=== PATIENT | male | born 1985 | race Caucasian/White ===

== ENCOUNTER 2016-10-28 22:05 | Emergency (ER) | payer SELFPAY ==
[~2016-10-28 22:05] MED LIST: ABILIFY; TRAZ-147 PO
--- NOTE | 2016-10-28 22:29 | NUR ---
called to triage, no answer.
--- NOTE | 2016-10-28 22:52 | NUR ---
CALLED AGAIN X3; NO ANSWER
== END 2016-10-28 22:53 | disposition left against medical advice (07) ==
LOC: ER 22:20
DX: Z53.21 Procedure and treatment not carried out due to patient leaving prior to being seen by health care provider (principal)

== ENCOUNTER 2017-03-29 15:11 | Emergency (ER) | payer SELFPAY ==
[~2017-03-29] VITALS: Ht 188 cm; Wt 129.3 kg
[2017-03-29] MEDS ORDERED: KETOROLAC TROMETHAMINE INJ 60 MG/2 ML VIAL IM ONE ×2 (16:20→16:30)
[2017-03-29 16:33] LABS: BASOPHILS # (AUTO) 0.1 /CMM (0.0-0.2); BASOPHILS % (AUTO) 0.8 % (0.0-2.0); EOSINOPHILS # (AUTO) 0.2 /CMM (0.0-0.7); EOSINOPHILS % (AUTO) 2.4 % (0.0-6.0); HEMATOCRIT 47 % (39-51); HEMOGLOBIN 15.5 g/dL (13.5-17.5); LYMPHOCYTES # (AUTO) 2.5 /CMM (0.8-4.8); LYMPHOCYTES % (AUTO) 31.1 % (20.0-44.0); MEAN CORPUSCULAR HEMOGLOBIN 30 PG (26.0-33.0); MEAN CORPUSCULAR HGB CONC 33 g/dl (31.0-36.0); MEAN CORPUSCULAR VOLUME 91 fL (80-96); MONOCYTES # (AUTO) 0.7 /CMM (0.1-1.30); MONOCYTES % (AUTO) 8.9 % (2.0-12.0); NEUTROPHILS # (AUTO) 4.6 /CMM (1.8-8.9); NEUTROPHILS % (AUTO) 56.8 % (43.0-81.0); PLATELET COUNT (AUTO) 293 /CMM (150-450); RED BLOOD CELL COUNT(AUTO) 5.15 MIL/uL (4.5-6.0); WHITE BLOOD COUNT (AUTO) 8.1 K/uL (4.3-11.0)
--- NOTE | 2017-03-29 16:33 | NUR ---
CHEST PAIN X TODAY TOOTHACHE AND HEADACHE X 3 DAYS. PLACED ON MONITOR. AWAITING MD ORDER
--- NOTE | 2017-03-29 16:50 | NUR ---
UNABLE TO PROVIDE URINE DR LU MADE AWARE
[2017-03-29 17:08] LABS: ALANINE AMINOTRANSFERASE 36 U/L (12-78); ALBUMIN 4.1 g/dL (3.4-5.0); ALCOHOL, BLOOD 4 mg/dL (0-0); ALKALINE PHOSPHATASE 58 U/L (46-116); ASPARTATE AMINOTRANSFERASE 28 U/L (15-37); BILIRUBIN,DIRECT 0.1 mg/dL (0.0-0.2); BILIRUBIN,TOTAL 0.6 mg/dL (0.2-1.0); CALCIUM, SERUM 8.9 mg/dL (8.5-10.1); CARBON DIOXIDE 27 mmol/L (21-32); CHLORIDE 106 mmol/L (98-107); CREATININE 0.9 mg/dL (0.6-1.3); GLUCOSE 91 mg/dL (74-106); POTASSIUM 4.4 mmol/L (3.5-5.1); SODIUM SERUM 140 mmol/L (136-145); TOTAL PROTEIN, SERUM 7.2 g/dL (6.4-8.2); UREA NITROGEN, BLOOD 16 mg/dL (7-18)
[2017-03-29 17:09] LABS: ACETAMINOPHEN < 2 ug/ml (10-30)
--- NOTE | 2017-03-29 17:22 | NUR ---
CALLED [facility] FOR PSYCH EVAL ETA 1 HOUR
--- NOTE | 2017-03-29 17:28 | NUR ---
CALLED PHARMACY FOR MIROSLAVA
[2017-03-29] MEDS ORDERED: ARIPIPRAZOLE 5 MG TABLET PO ONE (17:30)
[2017-03-29] MEDS ORDERED: diphenhydrAMINE HCL 50 MG/ML VIAL ONE (17:44)
[2017-03-29] MEDS ORDERED: LORAZEPAM INJ 2 MG/ML VIAL ONE (17:47)
[2017-03-29] MEDS ORDERED: HALOPERIDOL LACTATE INJ 5 MG/ML VIAL ONE (17:48)
--- NOTE | 2017-03-29 17:58 | NUR ---
VERBAL ORDER FROM DR LU BENADRYL 50 MG , HALDOL 5MG AND ATIVAN 2MG IM LEFT THIGH FOR AGITATION. PLACED ON MONITOR.
[2017-03-29] MEDS ORDERED: LORAZEPAM INJ 2 MG/ML VIAL IM ONE (18:00)
[2017-03-29] MEDS ORDERED: diphenhydrAMINE HCL 50 MG/ML VIAL IM ONE (18:00)
[2017-03-29] MEDS ORDERED: HALOPERIDOL LACTATE INJ 5 MG/ML VIAL IM ONE (18:00)
--- NOTE | 2017-03-29 19:44 | NUR ---
ASSUMED CARE OF PT.
--- NOTE | 2017-03-29 20:09 | NUR ---
Patient is resting comfortably in bed with eyes closed. Easily aroused. VSS
--- NOTE | 2017-03-29 20:37 | NUR ---
ASSUMED CARE OF PT. PT APPEARS TO BE RESTING COMFORTABLY WITH NO S/S OF PAIN OR DISTRESS. VSS.
--- NOTE | 2017-03-29 21:03 | NUR ---
PT APPEARS TO BE RESTING COMFORTABLY. PT IS ABLE TO MOVE ALL LIMBS. PT IS ON THE MONITOR AND CONTINUOUS PULSE OX.
--- NOTE | 2017-03-29 23:30 | NUR ---
PT APPEARS TO BE SLEEPING COMFORTABLY, BUT IS EASILY AROUSED. PT IS ON THE MONITOR AND CONTINUOUS PULSE OX. WILL CONTINUE TO MONITOR THE PT.
--- NOTE | 2017-03-30 01:30 | NUR ---
PT APPEARS TO BE RESTING/SLEEPING SOUNDLY WITH NO S/S OF PAIN OR DISTRESS. PT IS ON THE MONITOR AND CONTINUOUS PULSE OX.
--- NOTE | 2017-03-30 03:05 | NUR ---
PT IS SLEEPING SOUNDLY WITH NO S/S OF PAIN OR DISTRESS.
--- NOTE | 2017-03-30 05:12 | NUR ---
PT APPEARS TO BE SLEEPING COMFORTABLY WITH NO S/S OF PAIN OR DISTRESS. PT IS ON THE MONITOR AND CONTINOUS PULSE OX. VSS.
--- NOTE | 2017-03-30 05:50 | NUR ---
PT USED THE URINAL AND HAD APPROX 500 ML CONCENTRATED URINE OUTPUT. PT WAS ABLE TO GIVE A URINE SAMPLE.
--- NOTE | 2017-03-30 07:03 | NUR ---
REPORT GIVEN TO CHIARA ZAVALA FOR CY.
[2017-03-30 07:09] LABS: APPEARANCE,URINE CLEAR (CLEAR); BILIRUBIN,URINE NEGATIVE (NEGATIVE); BLOOD, URINE NEGATIVE Ery/uL (NEGATIVE); COLOR,URINE YELLOW (YELLOW); KETONES,URINE 1+ (NEGATIVE); LEUKOCYTE ESTERASE ,URINE NEGATIVE (NEGATIVE); NITRITE, URINE NEGATIVE (NEGATIVE); PROTEIN,URINE TRACE mg/dl (NEGATIVE); UGLUCOSE NEGATIVE (NEGATIVE); UROBILINOGEN,URINE 0.2 EU/dL (0.2)
[2017-03-30 07:50] LABS: BACTERIA,URINE Few /HPF (None Seen); RBC,URINE 0-2 /HPF (0-2); SQUAMOUS EPITHELIAL CELL,UR Few /HPF (None Seen)
[2017-03-30 08:08] VITALS: BP 130/68
--- NOTE | 2017-03-30 08:09 | NUR ---
Patient discharged to home in stable condition. Written and verbal after care instructions given. Patient verbalizes understanding of instruction. ambulatory with steady gait. nad noted. vss. pt denies si/hi. no further complaints.
== END 2017-03-30 08:08 | disposition home or self-care (01) ==
LOC: ER 15:19
DX: F29 Unspecified psychosis not due to a substance or known physiological condition (principal); F20.9 Schizophrenia, unspecified; F31.9 Bipolar disorder, unspecified; F17.200 Nicotine dependence, unspecified, uncomplicated; Z88.8 Allergy status to other drugs, medicaments and biological substances; Z59.0 Homelessness
CPT/HCPCS: 36415 ×2; 71010; 80048; 80076; 80305; 80329; 81001; 84484 ×2; 85025; 93005; 96372 ×2; 99285; A4606; G0480 ×2; J1200; J1630; J1885; J2060; Z7610; 81000-TC

== ENCOUNTER 2017-05-15 01:05 | Emergency (ER) | payer SELFPAY ==
[~2017-05-15] VITALS: Ht 177.8 cm; Wt 81.6 kg
--- NOTE | 2017-05-15 01:09 | NUR ---
PT TO ER BED 13. PT BIB RA C/O ABD PAIN WITH N/V X 4 HOURS. PT PLACED IN GOWN AND ON CREDIT COLLECTION ASSOCIATE. VSS/RESP EVEN UNLABORED/NAD NOTED/SKIN WARM AND DRY/AOX4. AWAITING MD YUNG.
[2017-05-15] MEDS ORDERED: DICYCLOMINE HCL INJ 20 MG/2 ML AMPUL IM ONE (01:32)
[2017-05-15] MEDS ORDERED: ONDANSETRON HCL/PF 4 MG/2 ML VIAL ONE (01:32)
[2017-05-15] MEDS ORDERED: MORPHINE SULFATE INJ 4 MG/ML DISP.SYRIN ONE (01:33)
[2017-05-15] MEDS: ONDANSETRON HCL/PF 4 MG/2 ML VIAL IVP ONE (01:46)
[2017-05-15] MEDS: MORPHINE SULFATE INJ 2 MG/ML DISP.SYRIN IV ONE (01:46)
[2017-05-15] MEDS: DICYCLOMINE HCL INJ 20 MG/2 ML AMPUL IM ONE (01:47)
[2017-05-15] MEDS: IV NS 0.9% 1,000 ML BAG IV ONE (01:47)
--- NOTE | 2017-05-15 01:47 | NUR ---
20G RIGHT AC IV STARTED, BLOOD SAMPLE OBTAINED AND SENT TO LAB. MEDICATED PT ORDERED
[2017-05-15 01:49] LABS: BASOPHILS # (AUTO) 0.1 /CMM (0.0-0.2); BASOPHILS % (AUTO) 0.7 % (0.0-2.0); EOSINOPHILS # (AUTO) 0.2 /CMM (0.0-0.7); EOSINOPHILS % (AUTO) 2.1 % (0.0-6.0); HEMATOCRIT 49 % (39-51); HEMOGLOBIN 16.7 g/dL (13.5-17.5); LYMPHOCYTES # (AUTO) 2.1 /CMM (0.8-4.8); LYMPHOCYTES % (AUTO) 17.7 % (20.0-44.0); MEAN CORPUSCULAR HEMOGLOBIN 31 PG (26.0-33.0); MEAN CORPUSCULAR HGB CONC 34 g/dl (31.0-36.0); MEAN CORPUSCULAR VOLUME 90 fL (80-96); MONOCYTES # (AUTO) 0.7 /CMM (0.1-1.30); NEUTROPHILS # (AUTO) 8.6 /CMM (1.8-8.9); NEUTROPHILS % (AUTO) 73.5 % (43.0-81.0); PLATELET COUNT (AUTO) 293 /CMM (150-450); RDW COEFFICIENT OF VARIATION 13.8 (11.5-15.0); RED BLOOD CELL COUNT(AUTO) 5.39 MIL/uL (4.5-6.0); WHITE BLOOD COUNT (AUTO) 11.7 K/uL (4.3-11.0)
[2017-05-15] MEDS ORDERED: diphenhydrAMINE HCL 50 MG/ML VIAL ONE (01:54)
[2017-05-15] MEDS ORDERED: METOCLOPRAMIDE HCL 10 MG/2 ML VIAL ONE (01:54)
[2017-05-15 02:01] LABS: CALCIUM, SERUM 9.3 mg/dL (8.5-10.1); CREATININE 0.9 mg/dL (0.6-1.3); POTASSIUM 3.7 mmol/L (3.5-5.1)
[2017-05-15 02:02] LABS: INR 0.94 (0.87-1.13)
[2017-05-15] MEDS: diphenhydrAMINE HCL 50 MG/ML VIAL IV ONE (02:02)
[2017-05-15] MEDS: METOCLOPRAMIDE HCL 10 MG/2 ML VIAL IV ONE (02:04)
[2017-05-15 02:08] LABS: ALBUMIN 4.6 g/dL (3.4-5.0); BILIRUBIN,DIRECT 0.2 mg/dL (0.0-0.2); BILIRUBIN,TOTAL 0.7 mg/dL (0.2-1.0); TOTAL PROTEIN, SERUM 8.5 g/dL (6.4-8.2)
[2017-05-15] MEDS ORDERED: IV NS 0.9% 500 ML IV ONE (02:48)
[2017-05-15] MEDS ORDERED: IOHEXOL-300 100 ML VIAL IV ONE (02:48)
[2017-05-15] MEDS ORDERED: CT SWABBABLE VALVE TRANS SET 1 EA INFUS.SET MC ONE (02:48)
--- NOTE | 2017-05-15 02:55 | NUR ---
PT TO CT VIA STRETCHER.
--- NOTE | 2017-05-15 05:23 | NUR ---
IV removed. Catheter intact and site benign. Pressure and 4x4 applied to site. No bleeding noted. Patient discharged to home in stable condition. Written and verbal after care instructions given. Patient verbalizes understanding of instruction. Patient ambulatory with a steady gait.
[2017-05-15 05:25] VITALS: BP 121/63
== END 2017-05-15 05:25 | disposition home or self-care (01) ==
LOC: ER 01:06
DX: R10.84 Generalized abdominal pain (principal); R11.2 Nausea with vomiting, unspecified; R19.7 Diarrhea, unspecified; F20.9 Schizophrenia, unspecified; F17.200 Nicotine dependence, unspecified, uncomplicated; F15.10 Other stimulant abuse, uncomplicated; Z59.0 Homelessness; Z88.8 Allergy status to other drugs, medicaments and biological substances
CPT/HCPCS: 36415; 71045-TC; 80048-TC; 80076-TC; 83690-TC; 85025-TC; 85730-TC; A4606; J0500; J1200; J2270; J2405; J2765; J7030; J7040; Q9967; Z7610

== ENCOUNTER 2017-08-30 21:49 | Emergency (ER) | payer MEDICAID ==
[~2017-08-30] VITALS: Ht 188 cm; Wt 87.1 kg
[~2017-08-30 21:49] MED LIST changes: -TRAZ-147 PO; +TRAZ-214 PO
--- NOTE | 2017-08-30 22:00 | NUR ---
"I FELL A WEEK AGO AND MY LT FA HURTS", NAD NOTED, VSS, RESP EVEN AND UNLABORED, PT WAS PUT ON MONITOR WAITING FOR MD YUNG.
[2017-08-30] MEDS ORDERED: HYDROCODONE/APAP 5/325MG 1 EACH TABLET PO ONE (22:30)
[2017-08-30] MEDS ORDERED: IBUPROFEN 600 MG TABLET PO ONE ×2 (22:30→22:33)
[2017-08-30] MEDS ORDERED: HYDROCODONE/APAP 5/325MG 1 EACH TABLET ONE (22:33)
--- NOTE | 2017-08-30 22:40 | NUR ---
PT UNABLE TO GIVE URINE SAMPLE AT THIS MOMENT.
[2017-08-30 22:49] LABS: BASOPHILS # (AUTO) 0.1 /CMM (0.0-0.2); BASOPHILS % (AUTO) 0.9 % (0.0-2.0); EOSINOPHILS % (AUTO) 1.6 % (0.0-6.0); HEMATOCRIT 39 % (39-51); HEMOGLOBIN 13.3 g/dL (13.5-17.5); LYMPHOCYTES # (AUTO) 2.2 /CMM (0.8-4.8); LYMPHOCYTES % (AUTO) 20.9 % (20.0-44.0); MEAN CORPUSCULAR HGB CONC 34 g/dl (31.0-36.0); MEAN CORPUSCULAR VOLUME 90 fL (80-96); MONOCYTES # (AUTO) 0.9 /CMM (0.1-1.30); MONOCYTES % (AUTO) 8.9 % (2.0-12.0); NEUTROPHILS # (AUTO) 7.1 /CMM (1.8-8.9); NEUTROPHILS % (AUTO) 67.7 % (43.0-81.0); PLATELET COUNT (AUTO) 232 /CMM (150-450); RDW COEFFICIENT OF VARIATION 13.2 (11.5-15.0); RED BLOOD CELL COUNT(AUTO) 4.32 MIL/uL (4.5-6.0); WHITE BLOOD COUNT (AUTO) 10.5 K/uL (4.3-11.0)
[2017-08-30 23:00] LABS: CALCIUM, SERUM 8.2 mg/dL (8.5-10.1); POTASSIUM 3.9 mmol/L (3.5-5.1)
--- NOTE | 2017-08-30 23:25 | NUR ---
RADIOLOGIST SPEAKING TO ANDREA CLEMENT REGARDING RESULTS.
--- NOTE | 2017-08-31 00:11 | NUR ---
PATIENT STARTED TO BECOME AGGRESSIVE TOWARDS STAFF AND WAS CURING STAFF MEMBERS OUT IN [place] AND [place] AND WALKED OUT OF THE ER WITH A STEADY GAIT, PT GIVEN ACI AND PRESCRIPTION.
[2017-08-31 00:13] VITALS: BP 118/76
[2017-09-06] MEDS ORDERED: SULF1TAB48 PO (09:43)
== END 2017-08-31 00:14 | disposition home or self-care (01) ==
LOC: ER 21:49
DX: L03.114 Cellulitis of left upper limb (principal); S40.812A Abrasion of left upper arm, initial encounter; F20.9 Schizophrenia, unspecified; J40 Bronchitis, not specified as acute or chronic; F17.200 Nicotine dependence, unspecified, uncomplicated; F31.9 Bipolar disorder, unspecified; Z59.0 Homelessness; Z88.8 Allergy status to other drugs, medicaments and biological substances; V28.4XXA Motorcycle driver injured in noncollision transport accident in traffic accident, initial encounter; Y93.89 Activity, other specified; Y92.413 State road as the place of occurrence of the external cause; Y99.8 Other external cause status
CPT/HCPCS: 36415; 71045-TC; 73090-TC; 80048-TC; 85025-TC; A4606; Z7610

== ENCOUNTER 2017-09-03 00:47 | Emergency (ER) | payer MEDICAID ==
[~2017-09-03] VITALS: Ht 188 cm; Wt 86.2 kg
--- NOTE | 2017-09-03 00:55 | NUR ---
Called pt in wr, no response
--- NOTE | 2017-09-03 01:18 | NUR ---
Called pt in wr, no response
[2017-09-03 02:09] VITALS: BP 122/82
[2017-09-03] MEDS ORDERED: VANCOMYCIN 1 GM in IV D5W 250 ML IV ONE (02:30)
--- NOTE | 2017-09-03 02:33 | NUR ---
Patient does not wish to proceed with medical care recommended by Dr. KLINE ). Patient given information related to possible complications, up to and including , which could occur as a result of leaving the hospital at this time. Patient verbalizes understanding of risks involved due to leaving against medical advice. Patient has signed AMA form. VSS ypon discharge.
[2017-09-03] MEDS ORDERED: ARIP2TAB3 PO (11:06)
[2017-09-06] MEDS ORDERED: SULF1TAB48 PO (09:43)
== END 2017-09-03 02:40 | disposition left against medical advice (07) ==
LOC: ER 00:56
DX: L03.114 Cellulitis of left upper limb (principal); F20.9 Schizophrenia, unspecified; F17.200 Nicotine dependence, unspecified, uncomplicated; F31.9 Bipolar disorder, unspecified; Z59.0 Homelessness; Z53.20 Procedure and treatment not carried out because of patient's decision for unspecified reasons
CPT/HCPCS: 99281; A4606; Z7610; Z7502

== ENCOUNTER 2017-09-03 09:17 | Inpatient (IN) | payer MEDICAID ==
[~2017-09-03] VITALS: Ht 182.9 cm; Wt 69.4 kg
--- NOTE | 2017-09-03 09:38 | NUR ---
PAIN, SWELLING, AND REDNESS TO L UPPER ARM X 1 WEEK
[2017-09-03 10:54] LABS: BASOPHILS # (AUTO) 0.3 /CMM (0.0-0.2); BASOPHILS % (AUTO) 2.1 % (0.0-2.0); EOSINOPHILS % (AUTO) 0.5 % (0.0-6.0); HEMATOCRIT 41 % (39-51); HEMOGLOBIN 13.8 g/dL (13.5-17.5); LYMPHOCYTES # (AUTO) 2.2 /CMM (0.8-4.8); LYMPHOCYTES % (AUTO) 16.8 % (20.0-44.0); MEAN CORPUSCULAR HGB CONC 34 g/dl (31.0-36.0); MEAN CORPUSCULAR VOLUME 89 fL (80-96); MONOCYTES # (AUTO) 1.1 /CMM (0.1-1.30); MONOCYTES % (AUTO) 8.4 % (2.0-12.0); NEUTROPHILS # (AUTO) 9.3 /CMM (1.8-8.9); NEUTROPHILS % (AUTO) 72.2 % (43.0-81.0); PLATELET COUNT (AUTO) 278 /CMM (150-450); RDW COEFFICIENT OF VARIATION 12.2 (11.5-15.0); RED BLOOD CELL COUNT(AUTO) 4.57 MIL/uL (4.5-6.0)
[2017-09-03] MEDS ORDERED: CEFTRIAXONE 1GM BAG (ER ONLY) 50 ML IV ONE (10:58)
[2017-09-03] MEDS ORDERED: MORPHINE SULFATE INJ 4 MG/ML DISP.SYRIN ONE (10:58)
[2017-09-03] MEDS ORDERED: ONDANSETRON HCL/PF 4 MG/2 ML VIAL ONE (10:58)
[2017-09-03] MEDS ORDERED: ONDANSETRON HCL/PF 4 MG/2 ML VIAL IVP ONE (11:00)
[2017-09-03] MEDS ORDERED: MORPHINE SULFATE INJ 2 MG/ML DISP.SYRIN IV ONE (11:00)
[2017-09-03] MEDS ORDERED: IV NS 0.9% 1,000 ML BAG IV ONE (11:00)
[2017-09-03] MEDS ORDERED: VANCOMYCIN 1 GM in IV D5W 250 ML IV ONE (11:00)
[2017-09-03] MEDS ORDERED: CEFTRIAXONE 1GM BAG (ER ONLY) 1 GM/50 ML PIGGYBACK IV ONE (11:00)
[2017-09-03 11:05] LABS: CALCIUM, SERUM 8.3 mg/dL (8.5-10.1); CREATININE 0.8 mg/dL (0.6-1.3); POTASSIUM 3.8 mmol/L (3.5-5.1)
[2017-09-03] MEDS ORDERED: ARIP2TAB3 PO (11:06)
[2017-09-03] MEDS ORDERED: HALOPERIDOL LACTATE INJ 5 MG/ML VIAL ONE (11:06)
[2017-09-03 11:10] LABS: ALBUMIN 3.4 g/dL (3.4-5.0); BILIRUBIN,TOTAL 0.6 mg/dL (0.2-1.0); INR 0.94 (0.85-1.15); TOTAL PROTEIN, SERUM 6.7 g/dL (6.4-8.2)
--- NOTE | 2017-09-03 11:41 | NUR ---
[facility] PAGED, AUDREY GILBERT CASH MANAGEMENT SPECIALIST
--- NOTE | 2017-09-03 12:05 | NUR ---
GAVE REPORT TO AMEYA BENNETT LEFT ARM CELLULITIS ROOM 200 AUDREY GILBERT ADMITTING
[2017-09-03] MEDS ORDERED: HALOPERIDOL LACTATE INJ 5 MG/ML VIAL IM ONE (12:30)
[2017-09-03] MEDS ORDERED: MAG HYDROX/AL HYDROX/SIMETH 30 ML UDC PO PRN (13:00)
[2017-09-03] MEDS ORDERED: Z GUARD REMEDY 2 OZ OINT TP PRN (13:00)
[2017-09-03] MEDS ORDERED: MORPHINE SULFATE INJ 2 MG/ML DISP.SYRIN IV PRN (13:00)
[2017-09-03] MEDS ORDERED: HYDROCODONE/APAP 5/325MG 1 EACH TABLET PO PRN (13:00)
[2017-09-03] MEDS ORDERED: ACETAMINOPHEN 325 MG TABLET PO PRN (13:00)
[2017-09-03] MEDS ORDERED: MAGNESIUM HYDROXIDE 30 ML UDC PO PRN (13:00)
[2017-09-03] MEDS ORDERED: ONDANSETRON HCL/PF 4 MG/2 ML VIAL IVP PRN (13:00)
[2017-09-03 13:10] VITALS: BP 119/71
[2017-09-03] MEDS ORDERED: FEE PK DOSING 1 MIN EA MC ONE (13:16)
--- NOTE | 2017-09-03 13:46 | NUR ---
MS RN ADMITTING NOTES PATIENT ADMITTED TO UNIT VIA WHEELCHAIR @ 1310 ACCOMPANIED BY E.R. TRANSPORTED. A/O X3. VERBALLY RESPONSIVE WITH NO C/O PAIN OR DISCOMFORTS AT THIS TIME. PT ABLE TO TRANSFERRED SELF FROM WHEELCHAIR TO BED, SOON PT WAS IN BED, HE WENT TO SLEEP AND UN-ABLE TO ASSESS PROPERLY. PT WITH DIAGNOSIS OF CELLULITIS OF LEFT UPPER EXTREMITY. V/S TAKEN : BP 119/71MMHG, P 80, R 20, T 98.3F. ON ROOM AIR AT THIS TIME, BREATHING EVEN AND UNLABORED. HEAD TO TOE ASSESSMENT DONE: PT WITH IV ACCESS ON RIGHT AC G# 20 INTACT AND PATENT. PT NOTED WITH SWOLLEN LEFT UPPER EXTREMITY WITH ERYTHEMA, SCABS AND HEALING ABRASION. SKIN IS WARM TO TOUCH. PHOTOS TAKEN AND FILED ON CHART. UN-ABLE TO COMPLETE SKIN ASSESSMENT BECAUSE PT REFUSED TO REMOVE UNDER GARCIA AND DO ASSESSMENT ON HIS MID-LOWER BACK AND FRONT. SAFETY MEASURES INITIATED. HOB ELEVATED. BED PLACED ON LOW/LOCKED POSITION WI, SIDE-RAILS UP X2 WITH BED ALARM ON. WILL CONTINUE TO ASSESS AND MONITOR PT.
[2017-09-03] MEDS: IV NS 0.9% 1,000 ML IV PRN (13:56)
--- NOTE | 2017-09-03 14:03 | NUR ---
RN NOTES PATIENT VERY SLEEPY/DROWSY, UN-ABLE TO SIGNED CONSENT FOR CTA OF UPPER EXTREMITY AT THIS TIME. ELENO GILBERT MADE AWARE THAT SOON PT IS FULLY AWAKE AND ABLE TO UNDERSTAND THE PROCEDURE, I WILL LET HIM SIGN THE CONSENT IF HE WILL AGREE TO HAVE IT DOWN.
[2017-09-03 16:00] VITALS: BP 101/79
--- NOTE | 2017-09-03 19:01 | NUR ---
RN NOTES PATIENT AWAKE NOW AND EXPLAINED THAT CTA OF LEFT UPPER EXTREMITY WILL BE DONE ON HIM., VERBALIZED UNDERSTANDING AND SIGNED CONSENT. CALLED RADIOLOGY AND SPOKE TO INGRID THAT PT SIGNED THE CONSENT ALREADY, HE SAID THAT THEY'LL DO IT. WILL ENDORSED TO STITCHING MACHINE OPERATOR NURSE.
--- NOTE | 2017-09-03 19:04 | NUR ---
RN NOTES PATIENT IN BED AWAKE AT THIS TIME, EXPLAINED ABOUT CTA OF LEFTB UPPER EXT AND VERBALIZED UNDERSTANDING. CONSENT SIGNED AND FILED ON CHART. WILL CONTINUE TO MONITOR.
--- NOTE | 2017-09-03 19:18 | NUR ---
MS RN NOTES RECEIVED PT IN BED, RESTING COMFORTABLY AT THIS TIME, AROUSES EASILY, A/ O X 4. NO DISTRESS, NO SOB NOTED. RESPIRATION IS EVEN AND UNLABORED. IV SITE ON RAC INTACT AND PATENT, NO S/S OF INFILTRATION NOTED. IVF INFUSING WELL. NO C/O PAIN OR DISCOMFORT AT THIS TIME. SAFETY PRECAUTIONS OBSERVED, CALL LIGHT WITHIN REACH. WILL CONT TO MONITOR.
[2017-09-03] MEDS ORDERED: IOHEXOL-300 100 ML VIAL IV ONE (19:22)
--- NOTE | 2017-09-03 19:24 | NUR ---
MS RN CLOSING NOTES PATIENT PICKED-UP BY 2 RADIOLOGIST FOR CTA OF LEFT UPPER EXTREMITY. ALL NEEDS AND CARE ATTENDED WELL. ON ROOM AIR, TOLERATING WELL WITH NO ACUTE RESPIRATORY DISTRESS NOTED. IV ACCESS ON INTACT AND PATENT. ALL SAFETY MEASURES ENFORCED. ENDORSED TO NIGHT NURSE.
[2017-09-03 20:00] VITALS: BP 122/62
--- NOTE | 2017-09-03 20:15 | NUR ---
pt back to room 200 from radiology.
[2017-09-03] MEDS: VANCOMYCIN 1.25 GM in IV D5W 500 ML IV SCH (20:35)
--- NOTE | 2017-09-03 20:45 | NUR ---
PT REMINDED THAT WE NEED TO MEASURE HIS URINE OUTPUT, BUT REFUSED TO USE URINAL.
[2017-09-04] MEDS: VANCOMYCIN 1.25 GM in IV D5W 500 ML IV SCH ×3 (04:04→21:09)
--- NOTE | 2017-09-04 06:55 | NUR ---
MS RN NOTES PT IN BED, ASLEEP AT TIS TIME, APPEARS COMFORTABLE. AROUSES EASILY, A/ O X 4. NO DISTRESS, NO SOB NOTED. RESPIRATION IS EVEN AND UNLABORED. IV SITE ON RAC INTACT AND PATENT, NO S/S OF INFILTRATION NOTED. IVF INFUSING WELL. ALL DUE MEDS GIVEN. PT IS AMBULATORY. NO C/O PAIN OR DISCOMFORT AT THIS TIME. SAFETY PRECAUTIONS OBSERVED, CALL LIGHT WITHIN REACH. WILL ENDORSE TO NEXT SHIFT FOR CY.
[2017-09-04 08:00] VITALS: BP 104/66
--- NOTE | 2017-09-04 08:05 | NUR ---
RN OPENING NOTES RECEIVED PT. IN BED A&OX3. BREATHING IS UNLABORED, AND EVEN ON ROOM AIR. NO S/S OF ACUTE DISTRESS. IV FLUIDS RUNNING AT 75 ML/HR. BED IS IN LOWEST, AND LOCKED POSITION. 2 SIDE RAILS UP, AND CALL LIGHT WITHIN REACH. WILL CONTINUE TO ASSESS AND MONITOR.
--- NOTE | 2017-09-04 09:44 | NUR ---
RN NOTES PT. WAS EXPLAINED WE NEED TO COLLECT A URINE SAMPLE. PT. VERBALIZED UNDERSTANDING.
[2017-09-04] MEDS: CEFTRIAXONE 1 G in IV D5W 50 ML IV SCH (10:12)
[2017-09-04] MEDS ORDERED: OLANZAPINE 5 MG/TAB.RAPDIS PO PRN (11:00)
[2017-09-04 13:54] LABS: APPEARANCE,URINE CLEAR (CLEAR); BILIRUBIN,URINE NEGATIVE (NEGATIVE); BLOOD, URINE NEGATIVE Ery/uL (NEGATIVE); COLOR,URINE YELLOW (YELLOW); KETONES,URINE TRACE (NEGATIVE); LEUKOCYTE ESTERASE ,URINE NEGATIVE (NEGATIVE); NITRITE, URINE NEGATIVE (NEGATIVE); PROTEIN,URINE NEGATIVE (NEGATIVE); UGLUCOSE NEGATIVE (NEGATIVE)
[2017-09-04 13:58] LABS: BASOPHILS % (AUTO) 0.3 % (0.0-2.0); EOSINOPHILS % (AUTO) 0.7 % (0.0-6.0); HEMATOCRIT 40 % (39-51); HEMOGLOBIN 13.4 g/dL (13.5-17.5); LYMPHOCYTES # (AUTO) 1.2 /CMM (0.8-4.8); LYMPHOCYTES % (AUTO) 11.5 % (20.0-44.0); MEAN CORPUSCULAR HGB CONC 34 g/dl (31.0-36.0); MEAN CORPUSCULAR VOLUME 91 fL (80-96); MONOCYTES # (AUTO) 0.7 /CMM (0.1-1.30); MONOCYTES % (AUTO) 7.1 % (2.0-12.0); NEUTROPHILS # (AUTO) 8.3 /CMM (1.8-8.9); NEUTROPHILS % (AUTO) 80.4 % (43.0-81.0); PLATELET COUNT (AUTO) 275 /CMM (150-450); RDW COEFFICIENT OF VARIATION 12.8 (11.5-15.0); RED BLOOD CELL COUNT(AUTO) 4.41 MIL/uL (4.5-6.0); WHITE BLOOD COUNT (AUTO) 10.3 K/uL (4.3-11.0)
[2017-09-04 14:01] LABS: RBC,URINE 0-2 /HPF (0-2); WBC,URINE 0-2 /HPF (0-3)
[2017-09-04 14:02] LABS: BACTERIA,URINE Rare /HPF (None Seen); SQUAMOUS EPITHELIAL CELL,UR Few /HPF (None Seen)
[2017-09-04 14:11] LABS: CALCIUM, SERUM 8.7 mg/dL (8.5-10.1); CREATININE 0.7 mg/dL (0.6-1.3); PHOSPHORUS 3.4 mg/dL (2.5-4.9); POTASSIUM 3.9 mmol/L (3.5-5.1)
[2017-09-04 14:14] LABS: THYROID STIMULATING HORMONE 0.419 uIU/mL (0.358-3.74)
[2017-09-04] MEDS: IV NS 0.9% 1,000 ML IV PRN (15:51)
[2017-09-04 16:00] VITALS: BP 110/69
[2017-09-04] MEDS: LACTOBACILLUS RHAMNOSUS GG 1 EACH CAP.SPRINK PO SCH (16:19)
--- NOTE | 2017-09-04 19:34 | NUR ---
RN CLOSING NOTES PT. IS IN BED A&OX3, LETHARGIC, AND WITHDRAWN. BREATHING IS UNLABORED, AND EVEN ON ROOM AIR. NO S/S OF ACUTE DISTRESS. IV FLUIDS RUNNING AT 75 ML/HR. URINAL AT BEDSIDE HAD 1980 CC OF CLEAR, AND YELLOW URINE OUTPUT. BED IS IN LOWEST, AND LOCKED POSITION. 2 SIDE RAILS UP, AND CALL LIGHT WITHIN REACH. WILL ENDORSE REPORT TO NURSE.
--- NOTE | 2017-09-04 19:35 | NUR ---
MS RN OPENING NOTES RECEIVED PT LAYING IN BED. SLEEPING AND RESPONSIVE TO NAME AND TOUCH. AFEBRILE, RESPIRATIONS ARE EVEN AND UNLABORED. NOT IN ANY ACUTE DISTRESS NOTED. PT DENIES ANY PAIN OR DISCOMFORT, N/V, SOB. IV SITE INTACT, NO INFILTRATION NOTED. DRESSING KEPT CLEAN AND DRY. SAFETY MEASURES ARE IN PLACE. CALL LIGHT IS LEFT WITHIN REACH. WILL CONTINUE TO MONITOR THROUGHOUT SHIFT FOR CONTINUITY OF CARE.
--- NOTE | 2017-09-04 20:00 | NUR ---
MS RN NOTES PT REFUSED VITAL SIGNS. EXPLAINED TO THE PT THE IMPORTANCE OF TAKING VITAL SIGNS, PT STILL NOTED WITH REFUSAL. PT IS NOT IN ANY APPARENT DISTRESS AT THIS TIME. WILL CONTINUE TO MONITOR.
--- NOTE | 2017-09-04 22:04 | NUR ---
MS RN NOTES PT REFUSED VITAL SIGNS AGAIN. EXPLAINED TO THE PT THE IMPORTANCE OF TAKING VITAL SIGNS, PT STILL NOTED WITH NONCOMPLIANCE M/B REFUSAL TO TAKE VITAL SIGNS. PT IS NOT IN ANY APPARENT DISTRESS AT THIS TIME. DENIES ANY PAIN, SOB, N/V. WILL CONTINUE TO MONITOR.
[2017-09-05] MEDS: VANCOMYCIN 1.25 GM in IV D5W 500 ML IV SCH ×3 (03:52→20:33)
[2017-09-05] MEDS: IV NS 0.9% 1,000 ML IV PRN (03:53)
[2017-09-05 05:00] VITALS: BP 114/55
[2017-09-05 06:00] VITALS: BP 114/55
--- NOTE | 2017-09-05 06:54 | NUR ---
MS RN CLOSING NOTES ALL DUE MEDS GIVEN, NEEDS MET AND RENDERED. AWAKE AND RESPONSIVE. AFEBRILE, RESPIRATIONS ARE EVEN AND UNLABORED, NOT IN ANY ACUTE DISTRESS NOTED. DENIES ANY SOB, CHEST PAIN, N/V. IV SITE INTACT, DRESSING KEPT CLEAN AND DRY. SAFETY MEASURES ARE IN PLACE. WILL ENDORSE TO NEXT SHIFT FOR CONTINUITY OF CARE.
[2017-09-05 07:28] LABS: BASOPHILS # (AUTO) 0.1 /CMM (0.0-0.2); BASOPHILS % (AUTO) 0.9 % (0.0-2.0); HEMATOCRIT 42 % (39-51); HEMOGLOBIN 14.2 g/dL (13.5-17.5); LYMPHOCYTES # (AUTO) 1.3 /CMM (0.8-4.8); LYMPHOCYTES % (AUTO) 14.1 % (20.0-44.0); MEAN CORPUSCULAR HGB CONC 34 g/dl (31.0-36.0); MEAN CORPUSCULAR VOLUME 90 fL (80-96); MONOCYTES # (AUTO) 0.8 /CMM (0.1-1.30); MONOCYTES % (AUTO) 8.5 % (2.0-12.0); NEUTROPHILS # (AUTO) 7.2 /CMM (1.8-8.9); NEUTROPHILS % (AUTO) 75.5 % (43.0-81.0); PLATELET COUNT (AUTO) 285 /CMM (150-450); RDW COEFFICIENT OF VARIATION 12.8 (11.5-15.0); RED BLOOD CELL COUNT(AUTO) 4.64 MIL/uL (4.5-6.0); WHITE BLOOD COUNT (AUTO) 9.5 K/uL (4.3-11.0)
--- NOTE | 2017-09-05 07:31 | NUR ---
RN CLOSING NOTES RECEIVED IN BED SLEEPING. BREATHING IS UNLABORED, AND EVEN ON ROOM AIR. NO S/S OF ACUTE DISTRESS. IV FLUIDS RUNNING AT 75 ML/HR. URINAL AT BEDSIDE WITHIN REACH. BED IS IN LOWEST, AND LOCKED POSITION. 2 SIDE RAILS UP, AND CALL LIGHT WITHIN REACH. WILL CONTINUE TO ASSESS AND MONITOR. Addendum: 09/05/17 at 1843 by DEBI HERNANDEZ RN OPENING NOTES ABOVE
[2017-09-05 07:48] LABS: CALCIUM, SERUM 8.9 mg/dL (8.5-10.1); CREATININE 0.7 mg/dL (0.6-1.3); POTASSIUM 4.1 mmol/L (3.5-5.1)
[2017-09-05 08:00] VITALS: BP 105/54
[2017-09-05] MEDS: LACTOBACILLUS RHAMNOSUS GG 1 EACH CAP.SPRINK PO SCH ×2 (08:45→16:43)
[2017-09-05] MEDS: CEFTRIAXONE 1 G in IV D5W 50 ML IV SCH (09:30)
[2017-09-05] MEDS ORDERED: LORAZEPAM INJ 2 MG/ML VIAL IV ONE (10:00)
[2017-09-05 16:00] VITALS: BP 112/67
--- NOTE | 2017-09-05 16:00 | NUR ---
RN NOTES PT. WAS SEEN AND EXAMINED BY PSYCHIATRIST. NO NEW ORDERS GIVEN, WILL CONTINUE SAME TREATMENT PLAN.
--- NOTE | 2017-09-05 18:43 | NUR ---
RN CLOSING NOTES PT. IS IN BED A&OX3. BREATHING IS UNLABORED, AND EVEN ON ROOM AIR. NO S/S OF ACUTE DISTRESS. IV FLUIDS RUNNING AT 75 ML/HR. URINAL AT BEDSIDE WITHIN REACH. PT. HAD APPROX. 1500 CC OF CLEAR, AND YELLOW URINE OUTPUT. BED IS IN LOWEST, AND LOCKED POSITION. 2 SIDE RAILS UP, AND CALL LIGHT WITHIN REACH. ALL NEEDS MET. WILL ENDORSE REPORT TO NURSE.
--- NOTE | 2017-09-05 19:30 | NUR ---
MS RN OPENING NOTES: PATIENT IN BED, ASLEEP BUT EASILY AWAKENED TO NAME BEING CALLED, AOX3, WITHDRAWN. ON ROOM AIR, BREATHING EVEN AND UNLABORED. BREATH SOUNDS CLEAR TO AUSCULTATION. APPEARS CALM AND IN NO DISTRESS. DENIES PAIN, JUST STATES THAT HE WANTS TO GO BACK TO SLEEP. PIV OVER RAC G 20 INTACT AND INFUSING WELL WITH NS RUNNING AT 75 ML/HR. NOTED SWELLING AND WARMTH OVER LEFT ARM, WITH CLEAN AND INTACT DRESSING NOTED. ADVISED PATIENT TO KEEP IT ELEVATED USING A PILLOW. PROVIDED FOR COMFORT AND SAFETY, BED IN LOWEST AND LOCKED POSITION, SIDERAILS UP X 3, CALL LIGHT WITHIN REACH. WILL CONT TO MONITOR.
[2017-09-05 19:52] VITALS: BP 99/54
[2017-09-05 20:00] VITALS: BP 99/54
[2017-09-06] MEDS: IV NS 0.9% 1,000 ML IV PRN (00:13)
[2017-09-06] MEDS: VANCOMYCIN 1.25 GM in IV D5W 500 ML IV SCH ×2 (04:29→11:51)
--- NOTE | 2017-09-06 05:45 | NUR ---
RN NOTES: OFFERED TO CHANGE LINEN AND GOWN, HOWEVER PATIENT IS REFUSING.
--- NOTE | 2017-09-06 06:00 | NUR ---
RN NOTES: PATIENT REFUSED AM LABS TO BE DRAWN, PER MOTOR VEHICLE OPERATOR ROAD SUPERVISOR, SHE WILL COME BACK LATER.
--- NOTE | 2017-09-06 07:08 | NUR ---
MS RN CLOSING NOTES: PATIENT IN BED, AOX3, ON ROOM AIR, BREATHING EVEN AND UNLABORED. APPEARS CALM AND IN NO DISTRESS. PATIENT WAS ABLE TO SLEEP WELL THROUGH THE NIGHT. WOUND DRESSING OVER LEFT FOREARM CHANGED. PIV OVER RAC G 20 INTACT AND PATENT, INFUSING WELL WITH NS RUNNING AT 75 ML/HR. DUE MEDS GIVEN. PROVIDED FOR COMFORT AND SAFETY. BED IN LOWEST AND LOCKED POSITION, SIDERAILS UP X 3, CALL LIGHT WITHIN REACH. NO ACUTE CHANGE IN CONDITION NOTED THROUGH SHIFT. WILL ENDORSE TO AM RN FOR CY.
--- NOTE | 2017-09-06 07:20 | NUR ---
ms rn initial notes Received patient in bed,a sleep, head of bed elevated, no SOB or distress noted on room air and tolerated well, patient is alert and oriented x 4, verbally responsive and able to make needs known as endorsed by shift mgr RN. IV intact and patent with IVF infusing well. Call light with in patient reach, will continue to monitor accordingly.
[2017-09-06 08:00] VITALS: BP 114/60
[2017-09-06] MEDS: LACTOBACILLUS RHAMNOSUS GG 1 EACH CAP.SPRINK PO SCH (08:48)
[2017-09-06] MEDS: CEFTRIAXONE 1 G in IV D5W 50 ML IV SCH (09:18)
[2017-09-06] MEDS ORDERED: SULF1TAB48 PO (09:43)
[2017-09-06 10:43] LABS: CALCIUM, SERUM 9.1 mg/dL (8.5-10.1); CREATININE 0.8 mg/dL (0.6-1.3); POTASSIUM 4.1 mmol/L (3.5-5.1)
--- NOTE | 2017-09-06 10:56 | NUR ---
WOUND CARE CONSULT: PT PRESENTS WITH LEFT ARM HEALED AREA AND SMALL OPEN AREA WITH PURULENT DRAINAGE. RECOMMENDATIONS MADE FOR WOUND CARE AND DISCUSSED WITH NURSING STAFF. PT IS INDEPENDENT WITH BED MOBILITY AND CONTINENT. DRY ABRASIONS NOTED TO LOWER EXTREMITIES. Addendum: 09/06/17 at 1057 by NAYAN ARGUETA WNDNU Amended: Links added.
[2017-09-06] MEDS ORDERED: BACITRACIN/POLYMYXIN B 15 GM TUBE TP SCH (11:00)
--- NOTE | 2017-09-06 12:25 | NUR ---
Social service consult requested by ELENO Hubbard for homelessness. Pt. is a 31 year old male who was admitted to [facility] for Left arm cellulitis. VÍCTOR met with pt. bedside. Pt. is alert and oriented x4. SW is familiar with pt. from a previous admission. Pt. was cooperative during the assessment. Pt. states he was attending [facility] but is not there anymore. Pt. resides on the streets or with friends at times. Pt. has had multiple psychiatric hospitalizations due to noncompliance. Pt. has a psychiatric diagnosis of bipolar disorder and polysubstance use disorder. Pt. denies suicidal and homicidal ideations and visual/auditory hallucinations at this time. VÍCTOR offered pt. homeless senior care placement and homeless referrals. Pt. declined both. VÍCTOR also offered pt. drug and alcohol treatment program referrals, however pt. declined. Pt. will require bus tokens upon discharge. VÍCTOR updated MAL Tolentino regarding pt's discharge plan.
--- NOTE | 2017-09-06 14:30 | NUR ---
ms program director/morning show host notes Discharge instructions given to patient and able to understand instructions. Alert and oriented x 3, verbally responsive and able to make needs known. Discharge paper signed and belonging list and no missing item noted. IV discontinued and pressured applied to prevent bleeding. Picture was taken by the night shift manager RN and filed in the chart. Pneumonia and flu vaccine not given due to flu is out of season and <65 years old for the pneumonia. Vital signs checked and recorded. Patient was in a hurry and left his prescription ATB for his cellulitis. Patient left in stable condition accompanied by RN assigned. No complaint of pain or discomfort noted, nor chest pain. MD and charge nurse made aware.
== END 2017-09-06 14:15 | disposition home or self-care (01) | DRG 872 ==
LOC: ER 09:22 → MEDSG2 12:10 → MED 09-04 06:15
PROVIDERS: ADMIT Nurse Practitioner Acute Care; ATTEND Nurse Practitioner Acute Care
DX: A41.9 Sepsis, unspecified organism (principal); F20.9 Schizophrenia, unspecified; L03.114 Cellulitis of left upper limb; F12.90 Cannabis use, unspecified, uncomplicated; F17.200 Nicotine dependence, unspecified, uncomplicated; Y93.55 Activity, bike riding; Y92.410 Unspecified street and highway as the place of occurrence of the external cause; Z88.8 Allergy status to other drugs, medicaments and biological substances; S50.812A Abrasion of left forearm, initial encounter; Z59.0 Homelessness; V18.4XXA Pedal cycle driver injured in noncollision transport accident in traffic accident, initial encounter; F41.9 Anxiety disorder, unspecified; L92.8 Other granulomatous disorders of the skin and subcutaneous tissue
CPT/HCPCS: 36415; 73090-TC; 73206-TC; 80048-TC; 80053-TC; 80061-TC; 80202-TC; 80305; 81000-TC; 82962-TC; 83605-TC; 83735-TC; 84100-TC; 84443-TC; 85025-TC; 85730-TC; 87040-TC; 87081-TC; A4606; A6253; A6402; A6403; J0696; J1630; J2060; J2270; J2405; J3370; J7030; J7060; Q9967; Z7610

== ENCOUNTER 2017-11-18 18:33 | Emergency (ER) | payer MEDICAID ==
[~2017-11-18] VITALS: Ht 185.4 cm; Wt 74.8 kg
[~2017-11-18 18:33] MED LIST changes: -ABILIFY; +ARIP2TAB3 PO; +SULF1TAB48 PO
[2017-11-18] MEDS ORDERED: HALOPERIDOL LACTATE INJ 5 MG/ML VIAL ONE (18:39)
[2017-11-18] MEDS ORDERED: LORAZEPAM INJ 2 MG/ML VIAL ONE (18:40)
[2017-11-18 18:50] LABS: BASOPHILS # (AUTO) 0.1 /CMM (0.0-0.2); BASOPHILS % (AUTO) 0.7 % (0.0-2.0); EOSINOPHILS % (AUTO) 4.1 % (0.0-6.0); HEMATOCRIT 49 % (39-51); LYMPHOCYTES # (AUTO) 3.8 /CMM (0.8-4.8); LYMPHOCYTES % (AUTO) 40.8 % (20.0-44.0); MEAN CORPUSCULAR HEMOGLOBIN 30 PG (26.0-33.0); MEAN CORPUSCULAR HGB CONC 33 g/dl (31.0-36.0); MEAN CORPUSCULAR VOLUME 92 fL (80-96); MONOCYTES # (AUTO) 1.1 /CMM (0.1-1.30); MONOCYTES % (AUTO) 11.7 % (2.0-12.0); NEUTROPHILS % (AUTO) 42.7 % (43.0-81.0); PLATELET COUNT (AUTO) 290 /CMM (150-450); RDW COEFFICIENT OF VARIATION 12.8 (11.5-15.0); RED BLOOD CELL COUNT(AUTO) 5.32 MIL/uL (4.5-6.0); WHITE BLOOD COUNT (AUTO) 9.4 K/uL (4.3-11.0)
--- NOTE | 2017-11-18 18:52 | NUR ---
[id number] FROM [address]RE[address]: PSYCHOTIC, AGITATED, AGGRESSIVE BEHAVIOR S/P USING METH. NOTED SCREAMING, KICKING, VERBALLY ABUSIVE, NONCOMPLIANT. MD AT BS FOR EVAL. ER TECHS AT BS TO ASSIST PT SAFELY TO BED AND PLACED ON 4 POINT RESTRAINTS. RECEIVED VERBAL ORDERS FROM FOR MEDS. ORDERS CARRIED OUT. WILL MONITOR.
[2017-11-18 18:59] LABS: CALCIUM, SERUM 9.1 mg/dL (8.5-10.1); CREATININE 1.1 mg/dL (0.6-1.3); POTASSIUM 4.8 mmol/L (3.5-5.1)
[2017-11-18] MEDS ORDERED: HALOPERIDOL LACTATE INJ 5 MG/ML VIAL IM ONE (19:00)
[2017-11-18] MEDS ORDERED: LORAZEPAM INJ 2 MG/ML VIAL IM ONE (19:00)
[2017-11-18] MEDS ORDERED: IV NS 0.9% 1,000 ML BAG IV ONE (19:00)
[2017-11-18 19:05] LABS: APPEARANCE,URINE Clear (CLEAR); BILIRUBIN,URINE Negative (NEGATIVE); BLOOD, URINE Large Ery/uL (NEGATIVE); COLOR,URINE Yellow (YELLOW); KETONES,URINE Negative (NEGATIVE); LEUKOCYTE ESTERASE ,URINE Negative (NEGATIVE); NITRITE, URINE Negative (NEGATIVE); PH,URINE 5.5 (5.0-8.0); PROTEIN,URINE 30 mg/dl (NEGATIVE); UGLUCOSE Negative (NEGATIVE); UROBILINOGEN,URINE 0.2 EU/dL (0.2)
[2017-11-18 19:05] LABS: ALBUMIN 4.3 g/dL (3.4-5.0); BILIRUBIN,DIRECT 0.1 mg/dL (0.0-0.2); BILIRUBIN,TOTAL 0.3 mg/dL (0.2-1.0); TOTAL PROTEIN, SERUM 7.9 g/dL (6.4-8.2)
--- NOTE | 2017-11-18 19:25 | NUR ---
PT ASLEEP, WILL OPEN EYES WHEN CALLED BY HIS FIRST NAME. PT STABLE, ALL RESTRAINTS ARE INTACT, SAMMIE WRISTS & SAMMIE ANKLES SKIN INTACT WITH GOOD CMS. WILL CONT TO MONITOR. PT TO CT VIA [facility].
[2017-11-18] MEDS ORDERED: CT SWABBABLE VALVE TRANS SET 1 EA INFUS.SET MC ONE (19:27)
[2017-11-18] MEDS ORDERED: IOHEXOL-300 100 ML VIAL IV ONE (19:27)
[2017-11-18] MEDS ORDERED: IV NS 0.9% 250 ML IV ONE (19:27)
[2017-11-18 19:43] LABS: BACTERIA,URINE Few /HPF (None Seen); MUCUS,URINE Many /LPF (None Seen); RBC,URINE TOO NUMEROUS TO COUN /HPF (0-2); SQUAMOUS EPITHELIAL CELL,UR Few /HPF (None Seen); URINE AMORPHOUS URATE Moderate /HPF (None Seen)
--- NOTE | 2017-11-18 20:36 | NUR ---
Patient is resting comfortably in bed with eyes closed. Easily aroused. VSS.
--- NOTE | 2017-11-18 20:37 | NUR ---
ALL 4 POINT RESTRAINTS DC'D BY DR. ELIZABETH. PT ASLEEP, WILL OPEN EYES WHEN CALLED BY FIRST NAME & WILL GO BACK TO SLEEP. WRISTS & ANKLES SKIN INTACT WITH GOOD CSM. VSS, NAD NOTED @ THIS TIME.
--- NOTE | 2017-11-18 22:26 | NUR ---
Patient is resting comfortably in bed with eyes closed. Easily aroused. VSS
--- NOTE | 2017-11-18 23:42 | NUR ---
REPORT RECEIVED FROM SHAD GUADARRAMA FOR CY. RESTING QUIETLY, NAD NOTED. VSS. ON MONITOR.
--- NOTE | 2017-11-19 02:30 | NUR ---
RESTING QUIETLY, NAD NOTED, VSS, ON MONITOR. ALL NEEDS ATTENDED TO. ASLEEP,EASILY AROUSABLE TO VOICE. CONTINUE TO MONITOR
--- NOTE | 2017-11-19 05:39 | NUR ---
RESTING QUIETLY, NAD NOTED, VSS, ON MONITOR. ALL NEEDS ATTENDED TO. ASLEEP BUT EASILY AROUSABLE TO VOICE.
[2017-11-19 06:17] VITALS: BP 120/65
--- NOTE | 2017-11-19 06:17 | NUR ---
Patient discharged to home in stable condition. Written and verbal after care instructions given. Patient verbalizes understanding of instruction. IV removed. Catheter intact and site benign. Pressure and 4x4 applied to site. No bleeding noted. AMBULATORY STEADY GAIT.
== END 2017-11-19 06:20 | disposition home or self-care (01) ==
LOC: ER 18:34
DX: R31.9 Hematuria, unspecified (principal); F15.129 Other stimulant abuse with intoxication, unspecified; M54.9 Dorsalgia, unspecified; Z88.8 Allergy status to other drugs, medicaments and biological substances; F20.9 Schizophrenia, unspecified; F31.9 Bipolar disorder, unspecified; Z59.0 Homelessness
CPT/HCPCS: 36415; 74177; 80048; 80076; 80305; 81001; 85025; 96372 ×2; 99285; A4606; J1630; J2060; J7030; J7050; Q9967; Z7610; 81000-TC

== ENCOUNTER 2019-12-23 19:00 | Emergency (ER) | payer MEDICAID ==
[~2019-12-23] VITALS: Ht 182.9 cm; Wt 81.6 kg
[~2019-12-23 19:00] MED LIST changes: -TRAZ-214 PO; +TRAZ-257 PO
[2019-12-23] MEDS ORDERED: ONDANSETRON HCL/PF 4 MG/2 ML VIAL ONE (19:32)
--- NOTE | 2019-12-23 19:40 | NUR ---
PT CAME FROM STREETS, "I AM DEHYDRATED". ADMITS TO VOMITING PRIOR TO ARRIVAL. CURRENTLY NAUSEOUS. PATIENT IS AAOX4. NO SOB. BREATHING EVENLY AND UNLABORED ON ROOM AIR. CONNECTED TO MONITOR.
[2019-12-23] MEDS: ONDANSETRON HCL/PF 4 MG/2 ML VIAL IVP ONE (19:43)
[2019-12-23] MEDS: IV NS 0.9% 1,000 ML BAG IV ONE (19:43)
--- NOTE | 2019-12-23 19:43 | NUR ---
BLOOD DRAWN & SENT TO LAB.
[2019-12-23 19:46] LABS: BASOPHILS % (AUTO) 0.6 % (0.0-2.0); HEMATOCRIT 43 % (39-51); HEMOGLOBIN 14.2 g/dL (13.5-17.5); LYMPHOCYTES # (AUTO) 1.5 /CMM (0.8-4.8); LYMPHOCYTES % (AUTO) 22.6 % (20.0-44.0); MEAN CORPUSCULAR HGB CONC 33 g/dl (31.0-36.0); MEAN CORPUSCULAR VOLUME 92 fL (80-96); MONOCYTES # (AUTO) 0.5 /CMM (0.1-1.30); NEUTROPHILS # (AUTO) 4.3 /CMM (1.8-8.9); NEUTROPHILS % (AUTO) 66.8 % (43.0-81.0); PLATELET COUNT (AUTO) 224 /CMM (150-450); RED BLOOD CELL COUNT(AUTO) 4.69 MIL/uL (4.5-6.0); WHITE BLOOD COUNT (AUTO) 6.4 K/uL (4.3-11.0)
[2019-12-23 19:53] LABS: CALCIUM, SERUM 8.7 mg/dL (8.5-10.1); CREATININE 0.9 mg/dL (0.6-1.3); POTASSIUM 3.8 mmol/L (3.5-5.1)
[2019-12-23 19:59] LABS: ALBUMIN 3.9 g/dL (3.4-5.0); BILIRUBIN,DIRECT 0.2 mg/dL (0.0-0.2); BILIRUBIN,TOTAL 0.7 mg/dL (0.2-1.0)
--- NOTE | 2019-12-23 20:50 | NUR ---
Patient discharged to home in stable condition. Written and verbal after care instructions given. Patient verbalizes understanding of instruction. Pt ambulated with steady gait. signed homeless waiver.
--- NOTE | 2019-12-23 20:50 | NUR ---
IV removed. Catheter intact and site benign. Pressure and 4x4 applied to site. No bleeding noted.
[2019-12-23 20:51] VITALS: BP 111/71
== END 2019-12-23 20:51 | disposition home or self-care (01) ==
LOC: EDBD → ER 19:04 → EDBD 19:04 → ER 20:51
DX: E86.0 Dehydration (principal); F31.9 Bipolar disorder, unspecified; F20.9 Schizophrenia, unspecified; Z59.0 Homelessness; Z88.8 Allergy status to other drugs, medicaments and biological substances; Z79.899 Other long term (current) drug therapy
CPT/HCPCS: 36415; 80048; 80076; 85025; 96361; 96374; 99283; J2405; J7030

== ENCOUNTER 2020-01-03 01:36 | Emergency (ER) | payer MEDICAID ==
[~2020-01-03] VITALS: Ht 188 cm; Wt 86.2 kg
[2020-01-03 01:49] VITALS: BP 134/84
[2020-01-03] MEDS ORDERED: IBUPROFEN 600 MG TABLET ONE (01:57)
[2020-01-03] MEDS ORDERED: IBUPROFEN 600 MG TABLET PO ONE (02:00)
== END 2020-01-03 02:02 | disposition home or self-care (01) ==
LOC: ER 01:40
DX: L03.011 Cellulitis of right finger (principal); Z60.2 Problems related to living alone; Z79.899 Other long term (current) drug therapy